=== PATIENT | male | born 1950 | race Caucasian/White ===

== ENCOUNTER 2017-03-20 07:10 | Day surgery (SDC) | payer MEDICARE, OTHER ==
[~2017-03-20] VITALS: Ht 182.9 cm; Wt 158.8 kg
[~2017-03-20 07:10] MED LIST: ACET-171 PO; AMIO200T PO; CARV6.252 PO; EFIN4SOL TP; FURO40TA4 PO; LACT1CAP65 PO; LISI10TA PO; Lactated Ringer's 1,000 ML IV ONE; OMEP20CA11 PO; TADA2.5T PO; TERA5CAP6 PO; TEST90SO TD; WARF10TA4 PO; WARF7.5T PO; ZLP5T PO
[2017-03-20] MEDS ORDERED: fentaNYL-PF 50 mCg/mL 2 mL Inj ONE (07:11)
[2017-03-20] MEDS ORDERED: Propofol 10 mg/mL 20 mL Inj ONE (07:11)
[2017-03-20 07:43] VITALS: BP 137/103; PULSE 83; RESP 16
--- NOTE | 2017-03-20 08:19 | PCM.ENDEGD ---
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 Scope introduced esophagus. Esophagus showed normal shiny whitish mucosa consistent with squamous cell component. Z line was irregular at 40 cm from the incisors. Narrow banding done. No ulcer or mass nodule erosion noted. There is couple of tongues of 2 cm or less salmon-colored mucosa consistent with Garcia's esophagus. Four- quadrant biopsies done every 2 cm. Scope further advanced to the stomach. Stomach had quite a bit of bilious material which was all suctioned. Redness edema irritation noted in the stomach from the antrum to the body. Rugae folds were intact.. Cardia fundus body antrum pylorus were all visualized. Retroflexion was done. Stomach was easily inflated and deflatable using air. Scope further events to the distal duodenum. Duodenum revealed normal villous structures with normal appearing folds without any mass ulcer erosion. 5 biopsies done. 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 Patient monitoring Continuous pulse oximetry, cardiac monitoring, blood pressure monitoring, IV access, and oxygen at 2L per nasal cannula. Complications There were no periprocedural complications identified. Post Procedure Plan Post Procedure Recommendations 1. Restrict activities today. 2. Resume normal activities in the morning. 3. Resume medications. 4. GERD behavioral modification: - Avoid fatty, acidic, spicy, large meals - Do not lie down after meals - Do not eat or drink anything for at least 2 1/2 hours before going to bed at night - Discontinue tobacco and alcohol - Decrease or avoid caffeine - Avoid chocolate and mints - Decrease weight - Avoid aspirin and non steroidal anti-inflammatory agents (NSAID) such as Aleve, Advil, Mobic, Naproxen, Ibuprofen, etc 5. Add proton pump inhibitor. Take 30 minutes before 1st meal of the day. 6. Patient informed of normal post procedure side effects as bloating, drowsiness, blood streaking in the stool 7. If gastric biopsy reveal H.pylori, continue with appropriate treatment 8. If small bowel biopsy reveals celiac, continue with appropriate treatment 9. Please don't hesitate to call me with any questions Fritz Nur MD Mar 20, 2017 08:19
--- NOTE | 2017-03-20 08:39 | PCM.ENDCOL ---
Colonoscopy Date of Service: Mar 20, 2017 Physician Fritz Nur MD Pre Procedure Diagnosis: Diarrhea Post Procedure Dx & Findings: Diverticuli hemorrhoids Procedure Colonoscopy PROCEDURE IN DETAIL: Prep adequate Withdrawal time 12 minutes After unremarkable rectal examination the Olympus video colonoscope was inserted patient's anal canal and was advanced to cecum. Landmarks were identified including the ileocecal valve and appendiceal orifice. Scope was advanced into the terminal ileum. We advanced 10 cm. The terminal ileum showed normal villous structures without any ulcer mass erosions. Scope was withdrawn systematically. Visualized colonic mucosa showed healthy shiny mucosa with normal healthy-appearing vasculature. Patient had diverticulosis small one isolated in the cecum and also in the sigmoid colon. Random biopsies of the colon was taken from the cecum to the rectum. In the rectum retroflexion was done which showed hemorrhoids. Anal canal was inspected carefully on the way out and hemorrhoids noted. Impression Diverticulosis Hemorrhoids Recommendation Repeat colonoscopy in 5 years if there is personal or family history of colon cancer or polyp. Otherwise 10 years Diverticular diet Presedation Assessment Risks and Benefits Informed consent was obtained from the patient after all risks and benefits including but not limited to drug reaction, infection, pain, bleeding, perforation, as well as alternatives were discussed. Patient monitoring Continuous pulse oximetry, cardiac monitoring, blood pressure monitoring, IV access, and oxygen at 2L per nasal cannula. Complications There were no periprocedural complications identified. Post Procedure Plan Post Procedure Recommendations 1. Restrict activities today. 2. Resume normal activities in the morning. 3. Resume medications. 4. Patient informed of normal post procedure side effects as bloating, drowsiness, blood streaking in the stool. 5. average risk CRCS. If colon polyps come back as: -Hyperplastic- can repeat colonoscopy in 10 years -Tubular adenoma- repeat colonoscopy in 5 years -Tubulovillous/villous adenoma- repeat colonoscopy in 3 years -If any dysplasia- return to clinic as soon as possible 6. Please don't hesitate to call me with any questions. Fritz Nur MD Mar 20, 2017 08:39
[2017-03-20 08:41] VITALS: BP 148/95; PULSE 78; RESP 15; O2SAT 96
[2017-03-20 08:51] VITALS: BP 162/105; PULSE 70; RESP 16; O2SAT 96
--- NOTE | 2017-03-20 09:17 | PCM.HPANE ---
Patient Data Date of Service: Mar 20, 2017 (0750) Surgeon Admitting Provider: Attending Provider:Fritz Nur MD Primary Care Physician:Bryson Castellon MD Other Provider:Latisha Crawford Anesthesia Reason for Visit Diarrhea In Adult Patient Ht/WT & BMI Height (Feet): 6 Height (Inches): 0 Weight (Kilograms): 158.76 Body Mass Index 47.00 Allergies Coded Allergies: No Known Drug Allergies (Verified Allergy, Unknown, 03/19/17) Uncoded Allergies: seasonal allergies (Adverse Reaction, Mild, grasses, uri, 09/27/15) Past Anesthesia History Anesthesia History: Denies:: Abnormal Airway, Anesthesia Reactions, Difficult Intubation, Fam Anesthesia Reaction, Fam Malignant Hypertherm, Malignant Hyperthermia Diabetes History Hx Diabetes?: No MRSA MRSA: No Medications Blood Thinner: Coumadin Last Dose Blood Thinner: Mar 15, 2017 Reported Medications Zolpidem (Ambien)5 Mg Tablet5 Mg PO HS PRN For Insomnia Ref 0 01/22/16 Acetaminophen 500 Mg Tablet1,000 Mg PO HS For Fever 09/26/15 Amiodarone 200 Mg [id number] Mg PO BID Ref 0 09/26/15 Lactobacillus Acidophilus (Probiotic)1 Each Capsule1 Each PO DAILY 07/18/15 Omeprazole 20 Mg Capsule.dr20 Mg PO DAILY Ref 0 07/18/15 Lisinopril 10 Mg Xslgeu39 Mg PO DAILY 30 Days Ref 0 07/18/15 Carvedilol 6.25 Mg Tablet6.25 Mg PO BID Ref 0 07/18/15 Warfarin Sodium (Coumadin)7.5 Mg Tablet7.5 Mg PO Fri, , , Fri 30 Days Ref 0 01/24/15 Warfarin Sodium 10 Mg Mbbyzr48 Mg PO Fri, Fri, Fri 30 Days Ref 0 01/23/15 Terazosin 5 Mg Capsule5 Mg PO HS 30 Days Ref 0 01/23/15 Efinaconazole (Jublia)4 Ml Faiza.w.appl4 Ml TP AM 01/23/15 Furosemide 40 Mg Awhqib35 Mg PO PM 30 Days 01/23/15 Tadalafil (Cialis)2.5 Mg Tablet2.5 Mg PO PM 30 Days Ref 0 As directed by physician. 01/23/15 Testosterone (Axiron)30 Mg/1.5 Ml Faiza.md.pmp60 Mg TD AM 4/27/15 History History of ENT Problems?: No HEENT History: Positive for:: Hearing Problem Sinus Problem Denies:: Abnormal Airway Difficult Intubation Denture Type: None Teeth Condition: Within Normal Limits Missing Teeth Hx of Heart Problems?: Yes Cardiovascular History: Positive for:: Atrial Fibrillation Edema (HX of Left leg blood clot - wears MIGUEL type stockings) Irregular Heartbeat (Atrial heartrate) Valvular Heart Disease (CAD) Denies:: Cardiac Surgery (HX of pulmonary embolus at age 38 - Filter in place) Chest Pain Congestive Heart Failure (Slight - enlargement "per patient") Heart Murmur Hypertension Pacemaker Thrombophlebitis Hx of Respiratory Problem?: Yes Respiratory History: Positive for:: Pneumonia Denies:: Asthma COPD Chest Surgery Dyspnea Emphysema Hemoptysis Tuberculosis Hx Neurologic Problems?: Yes Neurological History: Denies:: Alzheimer's Disease CVA Dementia Dizziness Headaches Parkinson's Disease Seizures Hx of GI Problems?: Yes Hx of Problems?: No Genitourinary History: Denies:: Kidney Stones Male Hx: Positive for:: Prostate Problems Denies:: Scrotal Mass Testicular Surgery Hx Musculoskeletal Problems?: Yes Musculoskeletal History: Denies:: Back Injury (Started when he lifted heavy stuff from the back yard) Joint Replacement Musculoskeletal Trauma Hx of Psycho/Social Problems?: No Psycho Social History: Denies:: Anxiety Bipolar Disorder Hx Depression Hx Surgeries?: Yes (tonsillectomy, arthroscopic knee surgery, hemrhoidectomy) Hx Any Other Health Problems?: Yes Other History: Positive for:: Hospitalization Denies:: Cancer Thyroid Disease History Blood Transfusions: Denies:: Blood Transfuse Reaction Blood Transfusions Hx Diabetes: No Hx Alcohol Use: YesHx Substance Use: No Smoking Status: Never Smoker Have You Smoked inLast 12 mo: No Stop/Bang Treated for Sleep Apnea?: Yes Do You Have a CPAP Machine?: Yes Risk Assessment Category Category 1A: Patient has history of documented sleep apnea, and HAS NOT received any narcotic, sedative or anesthesia administration during this stay. Category 1B: Patient has history of documented sleep apnea, and HAS received any narcotic , sedative or anesthesia administration during this stay Category 2: Patient has SUSPECTED Obstructive Sleep Apnea, and HAS received any narcotic , sedative or anesthesia administration during this stay. Category 3: Patient has SUSPECTED Obstructive Sleep Apnea and HAS NOT received narcotic, sedative or anesthesia administration during this stay. Category 4: Outpatient in Procedural Areas with known sleep apnea or who screen positive for High Risk via the STOP/BANG questionnaire. Exam Exam Vital Signs Vital Signs Date Time Temp Pulse Resp B/P Pulse Ox O2 Delivery O2 Flow Rate FiO2 03/20/17 08:51 70 16 162/105 96 Room Air 03/20/17 08:41 78 15 148/95 96 Room Air 03/20/17 07:43 36.9 83 16 137/103 Room Air General Appearance: Alert, Oriented X3, Cooperative, No Acute Distress HEENT/AIRWAY: MP 3 Lungs: Clear to Auscultation Heart: Exam Unremarkable Meds/Labs/Diagnostics Admission Meds Current Medications Lactated Ringer's (Lr) 1,000 ml @ 10 mls/hr Q24H ONCE IV Last administered on 03/20/17t 08:19; Start 03/20/17 at 06:00; Stop 03/21/17 at 05:59 Plan Impression Patient chart reviewed, patient interviewed and anesthestic plan with risks, benefits, and alternatives discussed, and informed consent obtained. ASA Physical Status: ASA3 Severe Disease Anesthetic Plan: MAC Bene/Risks/Altern/Consents: Yes HP Complete Prior to Induction: Yes Xavier Ward MD Mar 20, 2017 09:17
--- NOTE | 2017-03-20 09:17 | PCM.ANEP1 ---
Post Anesthesia PACU Phase 1 Assessment Vital Signs Vital Signs Date Time Temp Pulse Resp B/P Pulse Ox O2 Delivery O2 Flow Rate FiO2 03/20/17 08:51 70 16 162/105 96 Room Air 03/20/17 08:41 78 15 148/95 96 Room Air 03/20/17 07:43 36.9 83 16 137/103 Room Air Anesthetic Administered: MAC Level of Alertness: Awake, talking RABAGO's with Equal Strength: Yes Pain: No Nausea or Vomiting: No CV Function & Hydration Stable: Yes Airway Device: Oxygen Delivery: Room Air Lungs: Clear to Auscultation Dermatome Level: Full Sensation PACU Phase 2 Assessment Complications: No Patient Instructions Provided: N/A Xavier Ward MD Mar 20, 2017 09:17
--- NOTE | 2017-03-24 14:06 | PATH ---
SURGICAL PATHOLOGY Attending Physician:Fritz Nur M.D. CASE STATUS: Signed Out PATIENT NAME: RICARDO CHEEMA PID: [id number] : 1950 DATE COLLECTED:03/20/2017 16:01 SPECIMEN: 1: Duodenum, Biopsy 2: Gastric, Biopsy 3: Esophagus, Biopsy 4: Colon, Biopsy CLINICAL HISTORY: 1. DUODENUM BX 2. GASTRIC BX 3. DISTAL ESOPHAGUS BX 4. RANDOM COLON BX FINAL DIAGNOSIS: 1.DUODENUM BIOPSY: NO DIAGNOSTIC ABNORMALITY. Negative for intraepithelial lymphocytosis, villous blunting, or other features of celiac sprue. Negative for Giardia organisms, dysplasia and malignancy. 2.GASTRIC BIOPSY: GASTRIC ANTRUM WITH MILD CHRONIC GASTRITIS. Negative for Helicobacter organisms. Negative for intestinal metaplasia. No evidence of dysplasia or malignancy. 3.DISTAL ESOPHAGUS BIOPSY: GASTRIC GLANDULAR MUCOSA WITH INTESTINAL METAPLASIA, CONSISTENT WITH HAWK' S ESOPHAGUS. No evidence of dysplasia or malignancy. 4.RANDOM COLON BIOPSIES: NORMAL COLONIC MUCOSA. No significant inflammation identified. No evidence of dysplasia or malignancy. ICD10 K22.70 GROSS DESCRIPTION: 1. Received in formalin, labeled with the patient' s name and "duodenum biopsy", are three pieces of jain, soft tissue measuring 0.2 x 0.1 x 0.1 cm to 0.3 x 0.2 x 0.1 cm. Totally submitted in cassette A1. 2. Received in formalin, labeled with the patient' s name, is one piece of jain, soft tissue measuring 0.5 x 0.3 x 0.2 cm. Totally submitted in cassette 2A. 3. Received in formalin, labeled with the patient' s name and "distal esophagus biopsy", are two pieces of jain, soft tissue measuring 0.2 x 0.2 x 0.1 cm to 0.2 x 0.2 x 0.1 cm. Totally submitted in cassette 3A. 4. Received in formalin, labeled with the patient' s name and "random colon biopsy", are multiple pieces of jain, soft tissue measuring 0.1 x 0.1 x 0.1 cm to 0.4 x 0.3 x 0.3 cm. Totally submitted in cassette 4A ([id number]) MICRO DESCRIPTION: See diagnosis. ICD-9 CODES: CPT CODES: 1: 29436 2: 15986 3: 72538 4: 26951 Electronically Signed Out Maicol Diaz MD [facility] [address], [place] [address] Technical component performed at [facility], [address], [place], [address]
== END 2017-03-20 23:59 | disposition home or self-care (01) ==
LOC: END 07:10
PROVIDERS: ATTEND Internal Medicine
DX: K57.30 Diverticulosis of large intestine without perforation or abscess without bleeding (principal); K64.9 Unspecified hemorrhoids; K29.50 Unspecified chronic gastritis without bleeding; K22.70 Barrett's esophagus without dysplasia; R19.7 Diarrhea, unspecified; I48.0 Paroxysmal atrial fibrillation; I42.9 Cardiomyopathy, unspecified; K21.9 Gastro-esophageal reflux disease without esophagitis; G47.33 Obstructive sleep apnea (adult) (pediatric); I87.2 Venous insufficiency (chronic) (peripheral); N40.1 Benign prostatic hyperplasia with lower urinary tract symptoms; R35.0 Frequency of micturition; R39.15 Urgency of urination; E66.01 Morbid (severe) obesity due to excess calories; Z79.01 Long term (current) use of anticoagulants; Z86.711 Personal history of pulmonary embolism; Z68.42 Body mass index [BMI] 45.0-49.9, adult
CPT/HCPCS: 43239; 45380; J3010; J7120